=== PATIENT | male | born 1990 | race Caucasian/White ===

== ENCOUNTER 2019-05-11 06:45 | Emergency (ER) | payer BC ==
[2019-05-11] MEDS ORDERED: guaiFENesin 600 MG Tab.ER PO ONE (07:32)
[2019-05-11] MEDS ORDERED: Benzonatate 100 MG Cap PO ONE (07:33)
--- NOTE | 2019-05-11 07:34 | EDM.PDOC ---
ED HPI GENERAL MEDICAL PROBLEM - General Chief Complaint: Respiratory Problem Stated Complaint: cough Time Seen by Provider: 05/11/19 07:25 Source of Information: Reports: Patient History Limitations: Reports: No Limitations - History of Present Illness INITIAL COMMENTS - FREE TEXT/NARRATIVE: This 29 year old male presents to the ED with a chief complaint of coughing for one and a half week that has gotten worse. He states that he coughed up a small amount of blood yesterday and wanted to be checked out. He complains of generalized weakness but that his appetite is fine and that he is taking in fluids okay. Onset: Gradual (1.5 weeks) Duration: Intermittent - Related Data Allergies Allergy/AdvReac Type Severity Reaction Status Date / Time No Known Allergies Allergy Verified 05/11/19 07:00 Home Meds: Home Meds Azithromycin [Zithromax] 250 mg PO DAILY 7 Days #7 tab 05/11/19 [Rx] Benzonatate 200 mg PO BID PRN 10 Days #20 capsule 05/11/19 [Rx] guaiFENesin [Mucinex] 1,200 mg PO BID PRN 5 Days #10 tbmp.12hr 05/11/19 [Rx] Past Medical History HEENT History: Reports: None - Infectious Disease History Infectious Disease History: Reports: Chicken Pox - Past Surgical History HEENT Surgical History: Reports: Adenoidectomy, Tonsillectomy Social & Family History - Family History Family Medical History: Noncontributory - Tobacco Use Smoking Status *Q: Former Smoker Used Tobacco, but Quit: Yes Month/Year Tobacco Last Used: "years ago" - Caffeine Use Caffeine Use: Reports: Coffee, Soda - Recreational Drug Use Recreational Drug Use: No ED ROS GENERAL - Review of Systems Review Of Systems: See Below Constitutional: Reports: Weakness, Fatigue HEENT: Reports: No Symptoms Respiratory: Reports: Cough, Hemoptysis (very scant one time yesterday) Cardiovascular: Reports: No Symptoms Endocrine: Reports: No Symptoms GI/Abdominal: Reports: No Symptoms : Reports: No Symptoms Musculoskeletal: Reports: No Symptoms Skin: Reports: No Symptoms ED EXAM, GENERAL - Physical Exam Exam: See Below Exam Limited By: No Limitations General Appearance: Alert, WD/WN, No Apparent Distress Eye Exam: Bilateral Eye: EOMI, Normal Inspection, PERRL Ears: Normal External Exam, Normal Canal, Hearing Grossly Normal, Normal TMs Ear Exam: Bilateral Ear: Auricle Normal, Canal Normal, TM normal Nose: Normal Inspection, Normal Mucosa, No Blood Throat/Mouth: Normal Inspection, Normal Lips, Normal Teeth, Normal Gums, Normal Oropharynx, Normal Voice, No Airway Compromise Head: Atraumatic, Normocephalic Neck: Normal Inspection, Supple, Non-Tender, Full Range of Motion Respiratory/Chest: No Respiratory Distress, Crackles (mild crackles in both bases, right greater than the left) Cardiovascular: Normal Peripheral Pulses, Regular Rate, Rhythm, No Edema, No Gallop, No JVD, No Murmur, No Rub Peripheral Pulses: 3+: Radial (L), Radial (R), Dorsalis Pedis (L), Dorsalis Pedis (R) GI/Abdominal: Normal Bowel Sounds, Soft, Non-Tender, No Organomegaly, No Distention, No Abnormal Bruit, No Mass (Male) Exam: Deferred Rectal (Males) Exam: Deferred Back Exam: Normal Inspection, Full Range of Motion, NT Extremities: Normal Inspection, Normal Range of Motion, Non-Tender Neurological: Alert, Oriented, CN II-XII Intact, Normal Cognition, Normal Gait, Normal Reflexes, No Motor/Sensory Deficits Skin Exam: Warm, Dry, Intact, Normal Color, No Rash. No: Pallor, Petechiae, Rash Lymphatic: No Adenopathy Course - Vital Signs Text/Narrative:: I reviewed the patient's chest x-ray which was unremarkable. He is doing somewhat better after being medicated. He will be discharged. The patient agrees with the discharge plan. Last Recorded V/S: Last Vital Signs Temp 97.1 F 05/11/19 06:55 Pulse 63 05/11/19 06:55 Resp 17 05/11/19 06:55 BP 146/94 H 05/11/19 06:55 Pulse Ox 96 05/11/19 06:55 - Orders/Labs/Meds Orders: Active Orders 24 hr Category Date Time Status Azithromycin [Zithromax] Med 05/11/19 08:45 Ordered 250 mg PO STAT Medication Orders Azithromycin (Zithromax) 250 mg PO STAT NISREEN Meds: Medications Generic Name Dose Route Start Last Admin Trade Name Freq PRN Reason Stop Dose Admin Azithromycin 250 mg 05/11/19 08:45 Zithromax PO STAT NISREEN Discontinued Medications Generic Name Dose Route Start Last Admin Trade Name Freq PRN Reason Stop Dose Admin Benzonatate 200 mg 05/11/19 07:33 05/11/19 07:42 Tessalon Perles PO 05/11/19 07:34 200 mg ONETIME ONE Administration Guaifenesin 1,200 mg 05/11/19 07:32 05/11/19 07:42 Mucinex PO 05/11/19 07:33 1,200 mg ONETIME ONE Administration Departure - Departure Time of Disposition: 08:44 Disposition: Home, Self-Care 01 Condition: Good Clinical Impression: Bronchitis - Discharge Information *PRESCRIPTION DRUG MONITORING PROGRAM REVIEWED*: Yes *COPY OF PRESCRIPTION DRUG MONITORING REPORT IN PATIENT ANNA: Yes Referrals: PCP,None [Primary Care Provider] - Forms: ED Department Discharge Additional Instructions: Take all medications as directed. Follow up with your PCP in the next two to four days. Drink plenty of clear liquids for the next 24-48 hours. Rest for the next 24 hours. Return to the ED if your condition gets worse or should you have any questions or concerns. The following information is given to patients seen in the emergency department who are being discharged to home. This information is to outline your options for follow-up care. We provide all patients seen in our emergency department with a follow-up referral. The need for follow-up, as well as the timing and circumstances, are variable depending upon the specifics of your emergency department visit. If you don't have a primary care physician on staff, we will provide you with a referral. We always advise you to contact your personal physician following an emergency department visit to inform them of the circumstance of the visit and for follow-up with them and/or the need for any referrals to a consulting specialist. The emergency department will also refer you to a specialist when appropriate. This referral assures that you have the opportunity for follow-up care with a specialist. All of these measure are taken in an effort to provide you with optimal care, which includes your follow-up. Under all circumstances we always encourage you to contact your private physician who remains a resource for coordinating your care. When calling for follow-up care, please make the office aware that this follow-up is from your recent emergency room visit. If for any reason you are refused follow-up, please contact the [facility] Emergency Department at and asked to speak to the emergency department charge nurse. Sepsis Event Note - Evaluation Sepsis Screening Result: No Definite Risk - Focused Exam Vital Signs: Vital Signs Temp Pulse Resp BP Pulse Ox 05/11/19 06:55 97.1 F 63 17 146/94 H 96 Date Exam was Performed: 05/11/19 Time Exam was Performed: 08:35 - My Orders Last 24 Hours: My Active Orders 05/11/19 08:45 Azithromycin [Zithromax] 250 mg PO STAT - Assessment/Plan Last 24 Hours: My Active Orders 05/11/19 08:45 Azithromycin [Zithromax] 250 mg PO STAT
--- NOTE | 2019-05-11 08:28 | CR ---
Chest: 2 views of the chest were obtained. Comparison: No prior chest x-rays available. Heart size and mediastinum are normal. Lungs are clear. Minimal scoliosis is present within the spine. Impression: 1. Nothing acute is identified on 2 view chest x-ray. Diagnostic code #2 This report was dictated in [place] Standard Time
[2019-05-11] MEDS ORDERED: Azithromycin 250 MG Tab PO SCH (08:45)
== END 2019-05-11 09:10 | disposition home or self-care (01) ==
LOC: MW.ED 06:45
DX: J40 Bronchitis, not specified as acute or chronic (principal)
CPT/HCPCS: 71046; 87804; 99285; A9270